=== PATIENT | male | born 1995 | race Caucasian/White ===

== ENCOUNTER 2019-03-18 01:23 | Emergency (ER) | payer BC, OTHER ==
[~2019-03-18] VITALS: Ht 180.3 cm; Wt 120.2 kg
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
[2019-03-18 02:40] VITALS: BP 115/98
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
== END 2019-03-18 02:41 | disposition home or self-care (01) ==
LOC: ER 01:36
DX: S56.911A Strain of unspecified muscles, fascia and tendons at forearm level, right arm, initial encounter (principal); V48.4XXA Person boarding or alighting a car injured in noncollision transport accident, initial encounter
CPT/HCPCS: 73090